=== PATIENT | female | born 1955 | race Caucasian/White ===

== ENCOUNTER 2024-08-15 22:44 | Emergency (ER) | payer OTHER ==
--- OUTSIDE RECORDS SUMMARY | 2024-08-15 23:09 | XMS REPORT | Continuity of Care Document ---
Author Name Unknown Address [address] [facility] [address] [place] [address] [facility] Address [address] [facility] [address] [place] [address] Care Team Providers Care Health Systems Analyst Name Role Phone Harpreet Marie Attending Clinician Unavailable [email or web address]_S Attending Clinician Unavaila ble [email or web address]_S Admitting Clinician Unavaila ble Payers Payer Name Policy Type Policy Number Effective Date Expirati on Date Source [facility] [employer] TRS/ERS MCR PPO 1 [id number] 2022 00:00:00 [facility] 6 [id number] 2020 00:00:00 [facility] Problems Condition Name Condition Details Condition Category Status Onset Date Resolution Date Last Treatment Date Treating Clinician Comments Source [id number] Body mass index [BMI] 31.0-31.9, adult Problem Active [facility] [id number] Tobacco use disorder Problem Active [facility] [id number] Acquired hypothyroi dism Problem Active [facility] [id number] 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, unspecifie d pathologic al fracture presence Problem Active [facility] [id number] Other obesity due to excess calories Problem Active [facility] [id number] Mixed hyperlipid emia Problem Active [facility] [id number] Essential (primary) hypertensi on Problem Active [facility] Social History Social Habit Start Date Stop Date Quantity Comments Source History of Tobacco Use Current Smoker [facility] Sex Assigned At [facility] Smoking Status Start Date Stop Date Source Current Smoker 2024-01-10 00:00:00 [facility] Medications Ordered Medication Name Filled Medication Name Start Date Stop Date Current Medication? Ordering Clinician Indication Dosage Frequency Signature (SIG) Comments Components Source Levothyroxi ne Sodium 50 MCG Levothyroxi ne Sodium 50 MCG No QD Levothyrox ine Sodium 50 MCG Nicorette 4 MG Nicorette 4 MG No Nicorette 4 MG Lisinopril 30 MG Lisinopril 30 MG No 1{table t} QD Lisinopril 30 MG Alendronate Sodium 70 MG Alendronate Sodium 70 MG No 1{table t} Alendronat e Sodium 70 MG Pravastatin Sodium 80 MG Pravastatin Sodium 80 MG No 1{table t} QD Pravastati n Sodium 80 MG amLODIPine Besylate 10 MG amLODIPine Besylate 10 MG No 1{table t} QD amLODIPine Besylate 10 MG Vitamin D 50 MCG (1999) Vitamin D 50 MCG (1999) No 1{table t} QD Vitamin D 50 MCG (1999) Immunizations Ordered Immunization Name Filled Immunization Name Date Status Comments Source Shingrix Shingrix 2021-07-19 08:25:00 Completed [facility] Shingrix Shingrix 2021-05-06 09:25:00 Completed [facility] Afluria Afluria 2021-03-19 09:36:00 Completed [facility] Prevnar 13 (PCV13) Prevnar 13 (PCV13) 2020-04-23 09:36:00 Completed [facility] Adacel (Tdap) Adacel (Tdap) 2017-04-23 09:37:00 Completed [facility] Prevnar 20 (PCV20) Prevnar 20 (PCV20) Unknown Completed [facility] Shingrix Shingrix Unknown Completed [facility] Afluria Afluria Unknown Completed [facility] Adacel (Tdap) Adacel (Tdap) Unknown Completed [facility] Prevnar 13 (PCV13) Prevnar 13 (PCV13) Unknown Completed [facility] Prevnar 20 (PCV20) Prevnar 20 (PCV20) Unknown Completed [facility] Shingrix Shingrix Unknown Completed [facility] Afluria Afluria Unknown Completed [facility] Adacel (Tdap) Adacel (Tdap) Unknown Completed [facility] Prevnar 13 (PCV13) Prevnar 13 (PCV13) Unknown Completed [facility] Prevnar 20 (PCV20) Prevnar 20 (PCV20) Unknown Completed [facility] Shingrix Shingrix Unknown Completed [facility] Afluria Afluria Unknown Completed [facility] Adacel (Tdap) Adacel (Tdap) Unknown Completed [facility] Prevnar 13 (PCV13) Prevnar 13 (PCV13) Unknown Completed [facility] Prevnar 20 (PCV20) Prevnar 20 (PCV20) Unknown Completed [facility] Shingrix Shingrix Unknown Completed [facility] Afluria Afluria Unknown Completed [facility] Adacel (Tdap) Adacel (Tdap) Unknown Completed [facility] Prevnar 13 (PCV13) Prevnar 13 (PCV13) Unknown Completed [facility] Prevnar 20 (PCV20) Prevnar 20 (PCV20) Unknown Completed [facility] Shingrix Shingrix Unknown Completed [facility] Afluria Afluria Unknown Completed [facility] Adacel (Tdap) Adacel (Tdap) Unknown Completed [facility] Prevnar 13 (PCV13) Prevnar 13 (PCV13) Unknown Completed [facility] Prevnar 20 (PCV20) Prevnar 20 (PCV20) Unknown Completed [facility] Shingrix Shingrix Unknown Completed [facility] Afluria Afluria Unknown Completed [facility] Adacel (Tdap) Adacel (Tdap) Unknown Completed [facility] Prevnar 13 (PCV13) Prevnar 13 (PCV13) Unknown Completed [facility] Prevnar 20 (PCV20) Prevnar 20 (PCV20) Unknown Completed [facility] Shingrix Shingrix Unknown Completed [facility] Afluria Afluria Unknown Completed [facility] Adacel (Tdap) Adacel (Tdap) Unknown Completed [facility] Prevnar 13 (PCV13) Prevnar 13 (PCV13) Unknown Completed [facility] Prevnar 20 (PCV20) Prevnar 20 (PCV20) Unknown Completed [facility] Shingrix Shingrix Unknown Completed [facility] Afluria Afluria Unknown Completed [facility] Adacel (Tdap) Adacel (Tdap) Unknown Completed [facility] Prevnar 13 (PCV13) Prevnar 13 (PCV13) Unknown Completed [facility] Prevnar 20 (PCV20) Prevnar 20 (PCV20) Unknown Completed [facility] Shingrix Shingrix Unknown Completed [facility] Afluria Afluria Unknown Completed [facility] Adacel (Tdap) Adacel (Tdap) Unknown Completed [facility] Prevnar 13 (PCV13) Prevnar 13 (PCV13) Unknown Completed [facility] Prevnar 20 (PCV20) Prevnar 20 (PCV20) Unknown Completed [facility] Shingrix Shingrix Unknown Completed [facility] Afluria Afluria Unknown Completed [facility] Adacel (Tdap) Adacel (Tdap) Unknown Completed [facility] Prevnar 13 (PCV13) Prevnar 13 (PCV13) Unknown Completed [facility] Prevnar 20 (PCV20) Prevnar 20 (PCV20) Unknown Completed [facility] Shingrix Shingrix Unknown Completed [facility] Afluria Afluria Unknown Completed [facility] Adacel (Tdap) Adacel (Tdap) Unknown Completed [facility] Prevnar 13 (PCV13) Prevnar 13 (PCV13) Unknown Completed [facility] Prevnar 20 (PCV20) Prevnar 20 (PCV20) Unknown Completed [facility] Shingrix Shingrix Unknown Completed [facility] Afluria Afluria Unknown Completed [facility] Adacel (Tdap) Adacel (Tdap) Unknown Completed [facility] Prevnar 13 (PCV13) Prevnar 13 (PCV13) Unknown Completed [facility] Fluad (IIV) - SDS - 0.5mL Fluad (IIV) - SDS - 0.5mL Unknown Completed [facility] Prevnar 20 (PCV20) Prevnar 20 (PCV20) Unknown Completed [facility] Shingrix Shingrix Unknown Completed [facility] Afluria Afluria Unknown Completed [facility] Adacel (Tdap) Adacel (Tdap) Unknown Completed [facility] Prevnar 13 (PCV13) Prevnar 13 (PCV13) Unknown Completed [facility] Vital Signs Vital Name Observation Time Observation Value Comments S ource weight 2024-01-10 09:50:00 215.6 [lb_av] Co [facility] temperature 2024-01-10 09:50:00 96.9 [degF] Com mon [facility] bmi 2024-01-10 09:50:00 35.33 kg/m2 Comm on [facility] oximetry 2024-01-10 09:50:00 98 % [facility] blood pressure systolic 2024-01-10 09:50:00 138 mm[Hg] [facility] diastolic 2024-01-10 09:50:00 76 mm[Hg] [facility] height 2024-01-10 09:50:00 65.5 [in_i] [facility] height 2023-06-08 08:20:00 65.5 [in_i] Comm on [facility] weight 2023-06-08 08:20:00 209.6 [lb_av] Co on [facility] temperature 2023-06-08 08:20:00 97.7 [degF] Com [facility] bmi 2023-06-08 08:20:00 34.35 kg/m2 [facility] oximetry 2023-06-08 08:20:00 97 % [facility] blood pressure systolic 2023-06-08 08:20:00 138 mm[Hg] [facility] blood pressure diastolic 2023-06-08 08:20:00 78 mm[Hg] [facility] height 2023-06-08 08:20:00 65.5 [in_i] [facility] weight 2023-06-08 08:20:00 209.6 [lb_av] Co [facility] temperature 2023-06-08 08:20:00 97.7 [degF] Com [facility] bmi 2023-06-08 08:20:00 34.35 kg/m2 [facility] oximetry 2023-06-08 08:20:00 97 % [facility] blood pressure systolic 2023-06-08 08:20:00 138 mm[Hg] [facility] blood pressure diastolic 2023-06-08 08:20:00 78 mm[Hg] Common [facility] height 2023-06-08 08:20:00 65.5 [in_i] [facility] weight 2023-06-08 08:20:00 209.6 [lb_av] [facility] temperature 2023-06-08 08:20:00 97.7 [degF] Com [facility] bmi 2023-06-08 08:20:00 34.35 kg/m2 [facility] oximetry 2023-06-08 08:20:00 97 % [facility] respiratory rate 2023-06-08 08:20:00 16 /min [facility] blood pressure systolic 2023-06-08 08:20:00 138 mm[Hg] [facility] blood pressure diastolic 2023-06-08 08:20:00 78 mm[Hg] [facility] height 2022-12-07 08:10:00 65.5 [in_i] [facility] weight 2022-12-07 08:10:00 213 [lb_av] [facility] temperature 2022-12-07 08:10:00 96.8 [degF] Com [facility] bmi 2022-12-07 08:10:00 34.9 kg/m2 [facility] oximetry 2022-12-07 08:10:00 98 % [facility] respiratory rate 2022-12-07 08:10:00 16 /min [facility] blood pressure systolic 2022-12-07 08:10:00 132 mm[Hg] [facility] diastolic 2022-12-07 08:10:00 70 mm[Hg] [facility] height 2022-06-09 08:10:00 65.5 [in_i] [facility] weight 2022-06-09 08:10:00 204.9 [lb_av] [facility] temperature 2022-06-09 08:10:00 97.3 [degF] Com [facility] bmi 2022-06-09 08:10:00 33.57 kg/m2 [facility] oximetry 2022-06-09 08:10:00 98 % [facility] respiratory rate 2022-06-09 08:10:00 18 /min [facility] blood pressure systolic 2022-06-09 08:10:00 125 mm[Hg] [facility] blood pressure diastolic 2022-06-09 08:10:00 69 mm[Hg] [facility] height 2022-06-09 08:00:00 65.5 [in_i] [facility] weight 2022-06-09 08:00:00 204.9 [lb_av] [facility] temperature 2022-06-09 08:00:00 97.3 [degF] Com [facility] bmi 2022-06-09 08:00:00 33.57 kg/m2 [facility] oximetry 2022-06-09 08:00:00 98 % [facility] respiratory rate 2022-06-09 08:00:00 18 /min [facility] blood pressure systolic 2022-06-09 08:00:00 125 mm[Hg] [facility] blood pressure diastolic 2022-06-09 08:00:00 69 mm[Hg] [facility] height 2021-12-07 08:20:00 65.5 [in_i] [facility] weight 2021-12-07 08:20:00 204.9 [lb_av] [facility] temperature 2021-12-07 08:20:00 97.9 [degF] Com [facility] bmi 2021-12-07 08:20:00 33.57 kg/m2 [facility] oximetry 2021-12-07 08:20:00 97 % [facility] respiratory rate 2021-12-07 08:20:00 16 /min [facility] blood pressure systolic 2021-12-07 08:20:00 137 mm[Hg] [facility] blood pressure diastolic 2021-12-07 08:20:00 63 mm[Hg] [facility] Encounters Start Date/Time End Date/Time Encounter Type Admission Type Attending Clinicians Care Facility Care Department Encounter ID Source 2023-06-06 14:42:01 Outpatient MarieHarpreet lópez [facility] [id number] [facility] 2022-06-07 08:55:01 Outpatient MarieHarpreet [facility] [id number] [facility] 2021-12-07 08:11:02 Outpatient MarieHarpreet lópez [facility] [id number] [facility] 2024-01-10 00:00:00 2024-01-10 00:00:00 (WEB) [facility] [id number] [facility] 2024-01-10 00:00:00 2024-01-10 00:00:00 OFFICE VISIT ESTAB PT LEVEL 4 [facility] [id number] [facility] 2023-11-21 00:00:00 2023-11-21 00:00:00 (TEL) [facility] [id number] [facility] 2023-08-21 00:00:00 2023-08-21 00:00:00 (TEL) [facility] [id number] [facility] 2023-07-11 00:00:00 2023-07-11 00:00:00 (TEL) [facility] [id number] [facility] 2023-06-08 00:00:00 2023-06-08 00:00:00 OFFICE VISIT ESTAB PT LEVEL 4 [facility] [id number] [facility] 2023-06-08 00:00:00 2023-06-08 00:00:00 (TEL) [facility] [id number] [facility] 2023-06-08 00:00:00 2023-06-08 00:00:00 INIT ANNUAL [facility] VISIT [facility] ST[facility] [id number] [facility] 2023-03-27 00:00:00 2023-03-27 00:00:00 (TEL) [facility] [id number] [facility] 2023-03-23 00:00:00 2023-03-23 00:00:00 (TEL) [facility] [id number] [facility] 2023-02-17 00:00:00 2023-02-17 00:00:00 Outpatient GC_GCBZW_Ka diyala_S [facility] [id number] [facility] 2023-02-01 00:00:00 2023-02-01 00:00:00 (TEL) [facility] ST[facility] [id number] [facility] 2022-12-07 00:00:00 2022-12-07 00:00:00 OFFICE VISIT ESTAB PT LEVEL 4 [facility] [id number] [facility] 2022-06-09 00:00:00 2022-06-09 00:00:00 (TEL) [facility] [id number] [facility] 2022-06-09 00:00:00 2022-06-09 00:00:00 OFFICE VISIT ESTAB PT LEVEL 4 [facility] [id number] [facility] 2022-06-09 00:00:00 2022-06-09 00:00:00 WELCOME TO MEDICARE PREV PHY EXAM [facility]C ST[facility] [id number] [facility] 2021-12-07 00:00:00 2021-12-07 00:00:00 OFFICE VISIT ESTAB PT LEVEL 4 [facility] [id number] [facility] Results Test Description Test Time Test Comments Results Result Co mments Source THYROID II PROFILE (TU, T4, T7, TSH)2022-11-30 00:00:00* Test Item Value Reference Range Interpretation Comme nts CORRECTED T4 (FTI) (test code = 28109-8) 5.5 UG/DL See_Comment [Automated messa ge] The system which generated this result transmitted reference range: 4.2-11.6 UG/DL. The reference range was not used to interpret this result as normal/abnormal. T-UPTAKE (test code = 22469-3) 30.2 % See_Comment [Automated messa ge] The system which generated this result transmitted reference range: 24.3-39.0 %. The reference range was not used to interpret this result as normal/abnormal. T4 (THYROXINE) (test code = 3026-2) 6.0 UG/DL See_Comment [Automated messa ge] The system which generated this result transmitted reference range: 4.5-10.5 UG/DL. The reference range was not used to interpret this result as normal/abnormal. THYROX. BIND. CAPAC. (test code = 59791-2) 1.1 0.8-1.3 TSH, THIRD GENERATION (test code = 77895-7) 5.030 UIU/ML See_Comment H [Automated messa ge] The system which generated this result transmitted reference range: 0.400-4.100 UIU/ML. The reference range was not used to interpret this result as normal/abnormal. DEXA, BONE DENSITY AXIAL SKELEDEXA, BONE DENSITY AXIAL SKELE
[2024-08-15 23:49] LABS: Absolute Basophils 0.1 K/uL (0-0.5); Absolute Eosinophils 0.3 K/uL (0-0.5); Absolute Lymphocytes (CBC) 1.9 K/uL (0.7-4.9); Absolute Monocytes 0.6 K/uL (0.1-1.3); Absolute Neutrophil 3.5 K/uL (1.8-8.0); Basophils % 1.3 % (0-1.3); Hematocrit 35.4 % (36.0-45.0); Hemoglobin 12.5 g/dL (12.0-15.0); Lymphocytes % 29.8 % (15.3-44.8); MCH 31.1 pg (27.0-35.0); MCHC 35.2 g/dL (32.0-36.0); MCV 88.3 fL (80-100); MPV 8.1 fL (7.6-11.3); Monocytes % 8.9 % (3.3-12.3); Platelets 276 thou/uL (152-406); Red Cell Distribution Width 13.5 % (12.1-15.2)
[2024-08-15 23:53] LABS: PT Prothrombin Time 11.5 SECONDS (10-13.0); PTT, Activated Partial Thromb 24.9 SECONDS (27.2-37.4); Protime INR 1.01
[2024-08-16 00:04] LABS: ALT/SGPT 20 U/L (13-56); AST/SGOT 11 U/L (15-37); Albumin 3.3 g/dL (3.4-5.0); Albumin/Globulin Ratio 1.1 (1.1-1.8); Alkaline Phosphatase 28 U/L (45-117); Anion Gap 12.4 mEq/L (5.0-15.0); BUN Blood Urea Nitrogen 6 mg/dL (7-18); Bicarbonate 23 mEq/L (21-32); Bilirubin Total 0.3 mg/dL (0.2-1.0); Globulin 3.1 g/dL (2.3-3.5); Glomerular Filtration Rate 80 ml/min (=/>90); Glucose Level 105 mg/dL (74-106); Potassium 3.4 mEq/L (3.5-5.1); Protein, Total 6.4 g/dL (6.4-8.2); Sodium Level 129 mEq/L (136-145)
[2024-08-16 00:05] LABS: Bilirubin Direct < 0.2 mg/dL (0-0.2); Bilirubin Indirect, Calculated 0.1 mg/dL (0.2-0.8)
--- NOTE | 2024-08-16 00:53 | ER ---
Nurse's Notes [facility] Name: Roslyn Lara Age: 69 yrs Sex: Female : 1955 Arrival Date: 08/15/2024 Time: 22:44 Bed 6 Private MD: Diagnosis: Syncope;Dehydration Presentation: 08/15 23:10 Chief complaint: Patient states: experienced syncopal episode at home, on scene was al5 diaphoretic. patient admits to ETOH use, states she has had 12 beers and has been drinking since noon. Coronavirus screen: At this time, the client does not indicate any symptoms associated with coronavirus-19. Ebola Screen: No symptoms or risks identified at this time. Initial Sepsis Screen: Does the patient meet any 2 criteria? No. Patient's initial sepsis screen is negative. Does the patient have a suspected source of infection? No. Patient's initial sepsis screen is negative. Risk Assessment: Do you want to hurt yourself or someone else? Patient reports no desire to harm self or others. Onset of symptoms was August 15, 2024. 23:10 Method Of Arrival: EMS: [facility] al5 23:10 Acuity: VIVIEN 3 al5 23:10 Care prior to arrival: Medication(s) given: Normal saline infusion, 500 mL, IV al5 initiated. 20 GA, in the left antecubital area, Glucose check: 98. Triage Assessment: 23:14 General: Appears in no apparent distress. comfortable, Behavior is calm, cooperative. al5 Pain: Denies pain. EENT: No signs and/or symptoms were reported regarding the EENT system. Neuro: Reports a syncopal episode. Cardiovascular: Capillary refill < 3 seconds Patient's skin is warm and dry. Rhythm is sinus rhythm. Respiratory: Airway is patent Respiratory effort is even, unlabored, Respiratory pattern is regular, symmetrical. GI: No signs and/or symptoms were reported involving the gastrointestinal system. : No signs and/or symptoms were reported regarding the genitourinary system. Derm: Skin is intact, is healthy with good turgor, Skin is pink, warm \T\ dry. normal. Musculoskeletal: No signs and/or symptoms reported regarding the musculoskeletal system. Historical: - Allergies: 23:13 No Known Allergies; al5 - PMHx: 23:13 Hypertensive disorder; Hypothyroidism; al5 - PSHx: 23:13 None; al5 - Immunization history:: Adult Immunizations up to date. - Infectious Disease History:: Denies. - Social history:: Smoking status: Patient reports the use of cigarette tobacco products, smokes one pack cigarettes per day. - Family history:: not pertinent. - Hospitalizations: : No recent hospitalization is reported. Screenin:15 [facility] ED Fall Risk Assessment (Adult) History of falling in the last 3 months, al5 including since admission No falls in past 3 months (0 pts) Confusion or Disorientation No (0 pts) Intoxicated or Sedated Yes (3 pts) Impaired Gait Yes (1 pt) Mobility Assist Device Used No (0 pt) Altered Elimination No (0 pt) Score/Fall Risk Level 3 or more points = High Risk Oriented to surroundings, Maintained a safe environment, Hourly rounding (assess needs \T\ fall precautionary measures) done. Abuse screen: Denies threats or abuse. Denies injuries from another. Nutritional screening: No deficits noted. Tuberculosis screening: No symptoms or risk factors identified. Assessment: 23:15 Reassessment: see triage assessment. al5 08/16 01:04 Reassessment: Patient appears in no apparent distress at this time. Patient and/or al5 family updated on plan of care and expected duration. Pain level reassessed. Patient is alert, oriented x 3, equal unlabored respirations, skin warm/dry/pink. Patient states feeling better. Vital Signs: 08/15 23:10 BP 97 / 53; Pulse 66; Resp 16; Temp 97.5(O); Pulse Ox 96% on R/A; Weight 97.52 kg; al5 Height 5 ft. 7 in. ; Pain 0/10; 23:15 BP 94 / 51; Pulse 61; Resp 16; Pulse Ox 99% ; al5 23:30 BP 88 / 42; Pulse 62; Resp 15; Pulse Ox 100% ; al5 23:45 BP 96 / 45; Pulse 62; Resp 16; Pulse Ox 98% on R/A; al5 08/16 00:00 BP 108 / 57; Pulse 66; Resp 14; Pulse Ox 100% on R/A; al5 00:36 BP 115 / 58; Pulse 67; Resp 16; Pulse Ox 98% ; al5 00:45 BP 124 / 55; Pulse 68; Resp 19; Pulse Ox 98% ; al5 08/15 23:10 Body Mass Index 33.67 (97.52 kg, 170.18 cm) al5 08/15 23:10 Pain Scale: Adult al5 ED Course: 08/15 23:09 Patient arrived in ED. bm8 23:09 Tyron Xiao MD is Attending Physician. rn 23:10 Wen Benitez RN is Primary Nurse. al5 23:13 Triage completed. al5 23:15 Arm band placed on right wrist. Patient placed in the treatment room, in view of staff al5 members, on continuous dryout operator, on pulse oximetry. 23:16 Patient has correct armband on for positive identification. Bed in low position. Call al5 light in reach. Side rails up X2. Provided Education on: plan of care. 23:16 No provider procedures requiring assistance completed. Maintain EMS IV. Dressing al5 intact. Good blood return noted. Site clean \T\ dry. Gauge \T\ site: 20G LAC. Flushed with 10 mL NS. 23:41 Chest Single View XRAY In Process Unspecified. EDMS 08/16 00:11 CT Head Brain wo Cont In Process Unspecified. EDMS 01:04 IV discontinued, intact, bleeding controlled, No redness/swelling at site. Pressure al5 dressing applied. Administered Medications: 08/15 23:23 Drug: NS 0.9% IV 1000 ml IV at 1000 ml once; to be given as a bolus over 60 minutes bm8 Route: IV; Rate: 1000 ml; Site: left antecubital; 08/16 01:00 Follow up: Response: No adverse reaction; IV Status: Completed infusion; IV Intake: al5 1000ml Medication: 08/15 23:15 VIS not applicable for this client. al5 Point of Care Testing: Blood Glucose: 23:40 Blood Glucose: 96 mg/dL; al5 Ranges: Intake: 08/16 01:00 IV: 1000ml; Total: 1000ml. al5 Outcome: 00:53 Discharge ordered by . rn 01:04 Discharged to home ambulatory, with family, al5 01:04 Condition: good 01:04 Discharge instructions given to patient, Instructed on discharge instructions, follow up and referral plans. Demonstrated understanding of instructions, follow-up care, 01:05 Patient left the ED. al5 Signatures: Dispatcher [employer] EDMS Xiao, Tyron, MD MD rn Roman Charlton RN RN bm8 Wen Benitez RN RN al5
--- NOTE | 2024-08-16 00:54 | EDPHYS ---
Physician Documentation [facility] Name: Roslyn Lara Age: 69 yrs Sex: Female : 1955 Arrival Date: 08/15/2024 Time: 22:44 Bed 6 Private MD: ED Physician Tyron Xiao HPI: 08/15 23:22 This 69 yrs old Female presents to ER via EMS with complaints of Syncope. rn 23:22 The patient has experienced syncope. Onset: The symptoms/episode began/occurred just rn prior to arrival. Duration: This was a single episode. Associated injury: The patient did not suffer any apparent associated injury. Current symptoms: Currently, the patient is not experiencing any symptoms. Patient has been enjoying a girls weekend, had 12 beers today. Skipped meals except for dinner. She was walking and did not feel well, dizzy and lightheaded, made her way to the couch where she had a single syncopal episode. No seizure-like activity reported. Patient was laid down on the ground and woke up immediately. No postictal period. Patient denies any injury or trauma. Did not fall to the ground was laid on the ground. No known coronary artery disease. Patient reports saw her PCP this morning for a general checkup and was cleared. Patient denies any fever chills or recent illness. No chest pain or shortness of breath preceding event. No abdominal pain or vomiting/diarrhea. No blood in stool. No changes in medication. EMS reports orthostatic hypotension when sitting or up her blood pressure dropped to the 90s or upper 80s. Gave her 500 cc bolus with improvement of symptoms. Denies any focal neurological deficits. No vision changes. No speech changes.. Historical: - Allergies: 23:13 No Known Allergies; al5 - PMHx: 23:13 Hypertensive disorder; Hypothyroidism; al5 - PSHx: 23:13 None; al5 - Immunization history:: Adult Immunizations up to date. - Infectious Disease History:: Denies. - Social history:: Smoking status: Patient reports the use of cigarette tobacco products, smokes one pack cigarettes per day. - Family history:: not pertinent. - Hospitalizations: : No recent hospitalization is reported. ROS: 23:22 Constitutional: Negative for fever, chills, and weight loss, Eyes: Negative for injury, rn pain, redness, and discharge, ENT: Negative for injury, pain, and discharge, Neck: Negative for injury, pain, and swelling, Cardiovascular: Negative for chest pain, palpitations, and edema, Respiratory: Negative for shortness of breath, cough, wheezing, and pleuritic chest pain, Abdomen/GI: Negative for abdominal pain, nausea, vomiting, diarrhea, and constipation, Back: Negative for injury and pain, : Negative for injury, bleeding, discharge, and swelling, MS/Extremity: Negative for injury and deformity, Skin: Negative for injury, rash, and discoloration, Neuro: Negative for headache, focal weakness, numbness, tingling, and seizure, Exam: 23:22 Constitutional: This is a well developed, well nourished patient who is awake, alert, rn and in no acute distress. Head/Face: Normocephalic, atraumatic. Eyes: Pupils equally round ENT: Dry mucous membranes Cardiovascular: Regular rate and rhythm. No pulse deficits. Respiratory: Speaking full sentences, unlabored. No increased work of breathing, no retractions or nasal flaring. Abdomen/GI: Soft, nontender MS/ Extremity: Pulses equal, no cyanosis. Neurovascular intact. Full, normal range of motion. Equal circumference. Ecchymosis right proximal forearm from IV attempt. No bony tenderness or deformity. Neuro: Awake and alert, GCS 15, oriented to person, place, time, and situation. Cranial nerves II-XII grossly intact. Motor strength 5/5 in all extremities. Sensory grossly intact. Cerebellar exam normal. 08/16 00:19 ECG was reviewed by the Attending Physician. rn Vital Signs: 08/15 23:10 BP 97 / 53; Pulse 66; Resp 16; Temp 97.5(O); Pulse Ox 96% on R/A; Weight 97.52 kg; al5 Height 5 ft. 7 in. ; Pain 0/10; 23:15 BP 94 / 51; Pulse 61; Resp 16; Pulse Ox 99% ; al5 23:30 BP 88 / 42; Pulse 62; Resp 15; Pulse Ox 100% ; al5 23:45 BP 96 / 45; Pulse 62; Resp 16; Pulse Ox 98% on R/A; al5 08/16 00:00 BP 108 / 57; Pulse 66; Resp 14; Pulse Ox 100% on R/A; al5 00:36 BP 115 / 58; Pulse 67; Resp 16; Pulse Ox 98% ; al5 00:45 BP 124 / 55; Pulse 68; Resp 19; Pulse Ox 98% ; al5 08/15 23:10 Body Mass Index 33.67 (97.52 kg, 170.18 cm) al5 08/15 23:10 Pain Scale: Adult or5 MDM: 08/15 23:10 Medical Screening Exam initiated rn 08/16 00:50 Differential Diagnosis: cardiac arrhythmia, idiopathic syncope, vasovagal episode, rn syncope, orthostatic hypotension. Data reviewed: vital signs, nurses notes, lab test result(s), EKG, radiologic studies, CT scan, plain films, and as a result, I will discharge patient. Counseling: I had a detailed discussion with the patient and/or guardian regarding the historical points, exam findings, and any diagnostic results supporting the discharge/admit diagnosis, lab results, radiology results, the need for outpatient follow up, to return to the emergency department if symptoms worsen or persist or if there are any questions or concerns that arise at home. Response to treatment: the patient's symptoms have resolved after treatment, the patient's condition has returned to base line, the patient is now symptom free, and as a result, I will discharge patient. Special discussion: I discussed with the patient/guardian in detail that at this point there is no indication for admission to the hospital. It is understood, however, that if the symptoms persist or worsen the patient needs to return immediately for re-evaluation. 08/15 23:17 Order name: Basic Metabolic Panel; Complete Time: 00: rn 08/15 23:17 Order name: CBC with Diff; Complete Time: 00: rn 08/15 23:18 Order name: Hepatic Function; Complete Time: 00: rn 08/15 23:18 Order name: Magnesium; Complete Time: 00: rn 08/15 23:18 Order name: Protime (+inr); Complete Time: 00: rn 08/15 23:18 Order name: Ptt, Activated; Complete Time: 00: rn 08/15 23:18 Order name: Troponin High Sensitivity; Complete Time: 00:06 rn 08/15 23:33 Order name: Glucose, Ancillary Testing; Complete Time: 00:06 EDMS 08/15 23:18 Order name: CT Head Brain wo Cont rn 08/15 23:18 Order name: Chest Single View XRAY rn 08/15 23:18 Order name: Cardiac monitoring; Complete Time: : rn 08/15 23:18 Order name: EKG - Nurse/Tech; Complete Time: : rn 08/15 23:18 Order name: IV Saline Lock; Complete Time: : rn 08/15 23:18 Order name: Labs collected and sent; Complete Time: : rn 08/15 23:18 Order name: O2 Per Protocol; Complete Time: : rn 08/15 23:18 Order name: O2 Sat Monitoring; Complete Time: : rn EC:19 Rate is 64 beats/min. Rhythm is regular. QRS [place] is Normal. UT interval is normal. QRS rn interval is normal. QT interval is normal. No Q waves. T waves are Normal. No ST changes noted. Clinical impression: Normal ECG. Interpreted by me. Reviewed by me. Administered Medications: 08/15 23:23 Drug: NS 0.9% IV 1000 ml IV at 1000 ml once; to be given as a bolus over 60 minutes bm8 Route: IV; Rate: 1000 ml; Site: left antecubital; 08/16 01:00 Follow up: Response: No adverse reaction; IV Status: Completed infusion; IV Intake: al5 1000ml Point of Care Testing: Blood Glucose: 08/15 23:40 Blood Glucose: 96 mg/dL; al5 Ranges: Critical Glucose Levels:Adult <50 mg/dl or >400 mg/dl <40 mg/dl or >180 mg/dl Disposition Summary: 08/16/24 00:53 Discharge Ordered Notes: Location: Home rn Problem: new rn Symptoms: have improved rn Condition: Stable rn Diagnosis - Syncope rn - Dehydration rn Followup: rn - With: Private Physician - When: As needed - Reason: Recheck today's complaints, Re-evaluation by your physician Discharge Instructions: - Discharge Summary Sheet rn - Dehydration, Adult rn - Syncope rn Forms: - Medication Reconciliation Form rn - Antibiotic learning disabled teacher - Prescription Opioid Use rn - Patient Portal Instructions rn - Leadership Thank You Letter rn Signatures: Dispatcher [employer] Tyron Velasquez MD MD rn McDonald, Brad RN RN bm8 Wen Benitez RN RN al5 Corrections: (The following items were deleted from the chart) 23:18 23:18 BASIC METABOLIC PANEL+C.LAB.BRZ ordered. EDMS EDMS 23:18 23:18 CBC+H.LAB.BRZ ordered. EDMS EDMS 23:18 23:18 HEPATIC FUNCTION+C.LAB.BRZ ordered. EDMS EDMS 23:18 23:18 MAGNESIUM+C.LAB.BRZ ordered. EDMS EDMS 23:18 23:18 PROTIME (+INR)+COAG.LAB.BRZ ordered. EDMS EDMS 23:18 23:18 PTT, ACTIVATED+COAG.LAB.BRZ ordered. EDMS EDMS 23:18 23:18 Troponin High Sensitivity+C.LAB.BRZ ordered. EDMS EDMS 23:18 23:18 Head Brain Wo Cont+CT.RAD.BRZ ordered. EDMS EDMS 23:18 23:18 Chest Single View+RAD.RAD.BRZ ordered. EDMS EDMS 08/16 00:53 00:53 Alcohol use, unspecified with intoxication, unspecified rn rn
--- NOTE | 2024-08-16 01:13 | RAD REPORT ---
EXAM DESCRIPTION: CT HEAD WITHOUT IV CONTRAST CLINICAL HISTORY: 69 years Female Syncope. COMPARISON: None. TECHNIQUE: Images were obtained in axial, coronal and sagittal planes. No contrast administration. This exam was performed according to our departmental dose-optimization program which includes use of Automated Exposure Control, adjustment of the mA and/or kV according to patient size and/or use of iterative re construction technique. FINDINGS: Ventricular system appears normal. No abnormal increased attenuation is seen. No extra-axial fluid collections noted. No evidence for skull fracture. Unremarkable paranasal sinuses. Symmetric aeration of mastoid air nelli ls bilaterally. IMPRESSION: No acute intracranial abnormality. No evidence for hemorrhage, mass lesion, or large acute infarction . Electronically signed by: Shelbie Buck MD 08/16/2024 12:41 AM CDT RP Due to temporary technical issues with the PACS/[employer] reporting system, reports are being kyrie d by the in-house radiologist without review as a courtesy to ensure prompt reporting the interpreting radiologist is fully responsible for the content of the report. Transcribed Date/Time: 08/16/2024 1:13 AM
[2024-08-16 04:24] VITALS: BP 124/55; TEMP 97.5; O2SAT 98
--- NOTE | 2024-08-16 05:46 | RAD REPORT ---
CLINICAL HISTORY: syncope COMPARISON: None. TECHNIQUE: XR CHEST 1 VIEW 08/15/2024 11:18 PM CDT FINDINGS: Cardiac silhouette is normal in size. Lungs are clear without consolidation, atelectasis, mass or suzanne ma. There is no pleural effusion. There is no pneumothorax. There are no acute osseous findings. IMPRESSION: Clear lungs. Electronically signed by: Enoc Maciel MD 08/15/2024 11:48 PM CDT RP Due to temporary technical issues with the PACS/[facility] reporting system, reports are being kyrie d by the in-house radiologist without review as a courtesy to ensure prompt reporting the interpreting radiologist is fully responsible for the content of the report. Transcribed Date/Time: 08/16/2024 5:46 AM
--- NOTE | 2024-08-19 12:19 | EKG ---
Test Date: 2024-08-15 Test Time: 23:18:56 Vice President [employer]ending: BOY MEASUREMENT RESULTS: Intervals: Rate: 64 NV: 196 QRSD: 84 QT: 450 QTc: 464 Ashley: P: 36 NV: 196 QRS: 59 T: 69 INTERPRETIVE STATEMENTS: Normal sinus rhythm Normal ECG Compared to ECG 12/14/2022 12:23:28 No significant changes Electronically Signed On 08-19-24 12:10:54 CDT by Julian Chaparro
== END 2024-08-16 01:05 | disposition home or self-care (01) ==
LOC: ER 22:44
DX: R55 Syncope and collapse (principal); E86.0 Dehydration; I10 Essential (primary) hypertension; F17.210 Nicotine dependence, cigarettes, uncomplicated
CPT/HCPCS: 36415; 70450; 71045; 80048; 80076; 82947; 83735; 84484; 85025; 85610; 85730; 93005; 96360; 96361; 99284